=== PATIENT | male | born 1960 | race Caucasian/White ===

== ENCOUNTER 2018-08-02 14:40 | Outpatient (CLI) | payer OTHER ==
--- NOTE | 2018-08-02 14:55 | RAD ---
EXAM: 5 views of the cervical spine HISTORY: Neck pain COMPARISON: None FINDINGS: AP, lateral, flexion/extension, and open mouth odontoid views of the cervical spine shows n ormal height and alignment of the vertebral bodies and intervertebral discs without fracture or subluxation. No degenerative changes are seen. No prevertebral soft tissue swelling is seen. Alignmen t is unchanged with flexion and extension. IMPRESSION: No significant cervical spine abnormality.
== END 2018-08-02 14:41 | disposition home or self-care (01) ==
LOC: TBSIIMAG 14:40
PROVIDERS: ATTEND Surgery
DX: M54.2 Cervicalgia (principal)
CPT/HCPCS: 72050